=== PATIENT | male | born 1955 | race Caucasian/White ===

== ENCOUNTER 2021-08-09 15:09 | Emergency (ER) | payer BC ==
[~2021-08-09] VITALS: Ht 185.4 cm; Wt 77.3 kg
[2021-08-09 15:09] VITALS: BP 119/69
--- NOTE | 2021-08-09 15:42 | RAD ---
EXAM: Left thumb, 3 views. HISTORY: Laceration. COMPARISON: None. FINDINGS: 3 views of the left thumb are obtained. There is no fracture, dislocation or subluxation. T here is no radiodense foreign body. There is external bandage material. IMPRESSION: No acute osseous finding or radiodense foreign body. Electronically signed by: Janiya Hickman MD (08/09/2021 3:40 PM) [id number]
[2021-08-09] MEDS ORDERED: BUPIVACAINE MPF 0.5% 30 ML VIAL. INFIL ONE (15:45)
[2021-08-09] MEDS ORDERED: NEOMY/BACITR/POLYMYXIN OINT PACKET. TP ONE (15:45)
[2021-08-09] MEDS ORDERED: BUPIVACAINE MPF 0.5% 10 ML VIAL. INFIL ONE (15:45)
[2021-08-09] MEDS ORDERED: CEPH500C PO (15:50)
--- NOTE | 2021-08-09 15:51 | PHYS DOC ---
Past History Alcohol Use: Rarely General Adult EDM: Chief Complaint: LACERATION/AVULSION HPI: HPI: 65-year-old male past medical history of hypothyroidism and osteoarthritis, presents the ED with his , (patient consents to his/her/their knowledge and involvement in pts' medical care), complains of a cut to his left nondominant thumb, using a utility knife to cut tile. Reports his tetanus is up-to-date. Is able to bend and extend his thumb at the interphalangeal joint and MCP but states "it got deep into the meat." Was not under the influence of any alcohol or drugs. Review of Systems: Review of Systems: Constitutional: Denies fever or chills Eyes: Denies change in visual acuity HENT: Denies nasal congestion or sore throat Respiratory: Denies cough or shortness of breath Cardiovascular: Denies chest pain or edema GI: Denies nausea or vomiting Musculoskeletal: Denies back pain or joint swelling Integument: Denies rash or diaphoresis Neurologic: Denies headache, focal weakness or sensory changes Endocrine: Denies polyuria or polydipsia Lymphatic: Denies swollen glands Psychiatric: Denies depression or anxiety Allergies: Allergies: Allergies Coded Allergies Type Severity Reaction Last Updated Verified No Known Drug Allergies 08/09/21 No Physical Exam: PE: Constitutional: Well developed, well nourished, no acute distress, non-toxic appearance. HENT: Normocephalic, atraumatic, Eyes: EOMI, conjunctiva normal, no discharge. Neck: Normal range of motion, supple, Cardiovascular: S1/2 present, regular rhythm Lungs & Thorax: Speaking in full sentences, bilateral equal chest rise, no tachypnea or increased work of breathing Skin: Warm, dry, cap refill less than 1 second Extremities: no cyanosis, 1.5 cm laceration just distal to left IP joint over the lateral aspect of phalanges, lac does not involve the nailbed, patient able to flex and extend left MCP and IP joint with no decreased range of motion on arrival, median nerve sensation intact, equal radial pulses Neurologic: Alert and oriented X 3, normal motor function, normal sensory function, no focal deficits noted. [] Psychologic: Affect normal, judgement normal, mood normal. [] EKG: EKG: [] Radiology/Procedures: Radiology/Procedures: Indication: Left hand laceration Procedure: The patient was placed in the appropriate position and anesthesia around the left thumb laceration with bupivacaine. The area was then copiously irrigated. The laceration was closed with 4-0 Prolene, #3 sutures. The wound area was then dressed with triple antibiotic ointment and sterile dressings. Total repaired wound length: 1.5cm. Other Items: pt with full range of motion of his left thumb hand and wrist before and after procedure-median/ulnar/radial nerve intact with cap refill less than 1 second, no subungual hematoma The patient tolerated the procedure . Complications: None. IMAGING REPORT Signed PATIENT: LATESHA VALE OACCOUNT: [id number] : 1955 LOCATION: ER AGE: 65 SEX: M EXAM STATUS: REG ER ORD. PHYSICIAN: FARIDEH RICHARDSON DO REASON: thumb lac PROCEDURE: FINGER(S) LEFT EXAM: Left thumb, 3 views. HISTORY: Laceration. COMPARISON: None. FINDINGS: 3 views of the left thumb are obtained. There is no fracture, dislocation or subluxation. There is no radiodense foreign body. There is external bandage material. IMPRESSION: No acute osseous finding or radiodense foreign body. Electronically signed by: Janiya Chu MD (08/09/2021 3:40 PM) [id number] DICTATED AND SIGNED BY: JANIYA CHU MD DATE: 08/09/21 1539 CC: FARIDEH RICHARDSON DO; ÁNGEL GUY MD ~MTH0 0 Heart Score: C/O Chest Pain: No Risk Factors: Risk Factors: DM, Current or recent (<one month) smoker, HTN, HLP, family history of CAD, obesity. Risk Scores: Score 0 - 3: 2.5% MACE over next 6 weeks - Discharge Home Score 4 - 6: 20.3% MACE over next 6 weeks - Admit for Clinical Observation Score 7 - 10: 72.7% MACE over next 6 weeks - Early Invasive Strategies Course & Med Decision Making: Course & Med Decision Making Pertinent Labs and Imaging studies reviewed. (See chart for details) Concern for left lateral thumb laceration, easily repaired with simple interrupted sutures. Wound care instructions given. Suture removal in 7-10 days. Will discharge home with strict ED return precautions were given for rash, worsening pain, erythema, swelling or purulent drainage (signs of finger infection). Encouraged urgent outpatient follow-up with PMD and hand surgery prn for any decreased range of motion. Life-threatening processes were considered but are low suspicion at this time, given history, physical exam and ED workup. Pt was educated on all prescription medications and adverse effects. All patient's questions were answered and pt was stable at time of discharge. Life/limb-threatening differential includes but is not limited to, trauma (fracture, dislocation, laceration, compartment syndrome, tendon or ligament injury), neurovascular injury or deficitcva/tia, infection (osteomyelitis, abscess, cellulitis, septic arthritis, necrotizing fasciitis), deep vein thrombosis, renal/cardiac/liver disease, medication adverse effect, lymphedema/anasarca, vascular insufficiency or malignancy, I have spoken with the patient and/or caregivers. I explained the patient's condition, diagnoses and treatment plan based on the information available to me at this time. I have answered the patient and/or caregiver's questions and addressed any concerns. The patient and/or caregivers have a good understanding of patient's diagnosis, condition and treatment plan as can be expected at this point. Vital signs have been stable. Patient's condition is stable and appropriate for discharge from the emergency department. Patient will pursue further outpatient evaluation with primary care physician or other designated or consulting physician as outlined in the discharge instructions. The patient and/or caregivers are agreeable to this plan of care and follow-up instructions have been explained in detail. The patient and/or caregivers have received these instructions in written form and have expressed an understanding of the discharge instructions. The patient and/or caregivers are aware that any significant change of condition or worsening of symptoms should prompt immediate return to this or the closest emergency department or call to 911. Sugey Disclaimer: Sugey Disclaimer: This electronic medical record was generated, in whole or in part, using a voice recognition dictation system. Departure Departure: Impression: Primary Impression: Laceration of thumb, left Disposition: HOME / SELF CARE / HOMELESS Condition: STABLE Referrals: ÁNGEL GUY MD (PCP) Follow-up for suture removal in 7-10 days, any rash/warmth/drainage/worsening pain-return to ed immediately Patient Instructions: Fingertip Laceration, Laceration Care, Adult Additional Instructions: [facility] FOR DEFIINITIVE MANAGEMENT WITHIN THE NEXT 7 DAYS/IF YOU SHOULD DEVELOP ANY DECREASED RANGE OF MOTION Appointments may be made with Duarte Riley MD, Sukh Elizabeth MD, Luciano Keane MD or Mejia Hobbs MD, by calling [phone] EMERGENCY DEPARTMENT GENERAL DISCHARGE INSTRUCTIONS Thank you for coming to [facility] (ED) today and trusting us with you care. We trust that you had a positivie experience in our Emergency Department. If you wish to speak to the department management, you may call the director at [phone]. YOUR FOLLOW UP INSTRUCTIONS ARE FOLLOWS: 1. Do you have a private Doctor? If you do not have a private doctor, please ask for a resource list of physicians or clinics that may be able to assist you with follow up care. 2. The Emergency Physician has interpreted your x-rays. The X-Ray specialist will also review them. If there is a change in the findings, you will be notified in 48 hours when at all possible. 3. A lab test or culture has been done, your results will be reviewed and you will be notified if you need a change in treatment. ADDITIONAL INSTRUCTIONS AND INFORMATION: 1. Your care today has been supervised by a physician who is specially trained in emergency care. Many problems require more than one evaluation for a complete diagnosis and treatment. We recommend that you schedule your follow up appointment as recommended to ensure complete treatment of you illness or injury. If you are unable to obtain follow up care and continue to have a problem, or if your condition worsens, we recommend that you return to the ED. 2. We are not able to safely determine your condition over the phone nor are we able to give sound medical advice over the phone. For these safety reasons, if you call for medical advice we will ask you to come to the ED for further evaluation. 3. If you have any questions regarding these discharge instructions please call the ED at [phone]. SAFETY INFORMATION: In the interest of safety, wellness, and injury prevention; we encourage you to wear your sealbelt, if you smoke; quite smoking, and we encourage family to use a protective helmet for bicycling and other sporting events that present an increased risk for head injury. IF YOUR SYMPTOMS WORSEN OR NEW SYMPTOMS DEVELOP, OR YOU HAVE CONCERNS ABOUT YOUR CONDITION; OR IF YOUR CONDITION WORSENS WHILE YOU ARE WAITING FOR YOUR FOLLOW UP APPOINTMENT; EITHER CONTACT YOUR PRIMARY CARE DOCTOR, THE PHYSICIAN WHOSE NAME AND NUMBER YOU WERE GIVEN, OR RETURN TO THE ED IMMEDIATELY. Scripts Cephalexin (KEFLEX) 500 Mg Capsule 1 CAP PO QID for laceration for 7 Days, #28 CAP Prov: FARIDEH RICHARDSON DO 08/09/21 FARIDEH RICHARDSON DO Aug 09, 2021 15:51
== END 2021-08-09 17:12 | disposition home or self-care (01) ==
LOC: ER 15:09
DX: S61.012A Laceration without foreign body of left thumb without damage to nail, initial encounter (principal); E03.9 Hypothyroidism, unspecified; M19.90 Unspecified osteoarthritis, unspecified site; W26.0XXA Contact with knife, initial encounter; Y93.89 Activity, other specified; Y92.89 Other specified places as the place of occurrence of the external cause; Y99.8 Other external cause status
CPT/HCPCS: 12001; 73140; 99283-25